=== PATIENT | female | born 1950 | race Caucasian/White ===

== ENCOUNTER → 2016-07-25 | Outpatient (CLI) | payer MEDICARE, OTHER | LOC: LAB 11:08 | PROVIDERS: ATTEND Internal Medicine | DX: E11.9 Type 2 diabetes mellitus without complications (principal); E79.0 Hyperuricemia without signs of inflammatory arthritis and tophaceous disease; M10.472 Other secondary gout, left ankle and foot | CPT/HCPCS: 36415; 83036; 84550 ==

== ENCOUNTER → 2016-09-19 | Outpatient (CLI) | payer MEDICARE, OTHER ==
[~2016-09-19] MED LIST: ASCO100T PO; ASPI-586 PO; ATEN100T13 PO; ATN50T; CAPT100T2; CAPT100T2 PO; CEPH500T PO; CYAN500T14 PO; DABI150C PO; DLT120CCR PO; ESTR1TAB24; ESTR1TAB24 PO; FURO20TA4 PO; HYDR28.3 TP; LEVO50TA6 PO; OMG1KC PO; PIOG15TA3 PO; PIOG30TA26; PIOG30TA26 PO; [UNRECOGNIZED DRUG - CODE] PO
== END ==
LOC: LAB 13:03
PROVIDERS: ATTEND Internal Medicine
DX: E79.0 Hyperuricemia without signs of inflammatory arthritis and tophaceous disease (principal)
CPT/HCPCS: 36415; 84550